=== PATIENT | male | born 1995 | race Caucasian/White ===

== ENCOUNTER 2019-03-09 07:16 | Day surgery (SDC) | payer OTHER ==
[2019-03-09] MEDS: SOD CHLORIDE 0.9% 1,000 ML IV (08:30)
[2019-03-09] MEDS ORDERED: PROPOFOL 20 ML (10:57)
[2019-03-09] MEDS ORDERED: LIDOCAINE 1% (MDV) 20 ML INJ (10:58)
[2019-03-09] MEDS ORDERED: MIDAZOLAM 1 MG/ML 2 ML INJ (10:58)
[2019-03-09] MEDS ORDERED: FENTAnyl 50 MCG/ML VIAL (10:58)
[2019-03-09] MEDS ORDERED: HYDROmorphONE 1 MG/5 ML IV SYRINGE IV ×2 (11:00)
[2019-03-09] MEDS ORDERED: ONDANSETRON 4 MG INJ IV (11:00)
[2019-03-09] MEDS: CEFAZOLIN 2 GM/50 ML (PMX) 50 ML IVPB (11:00)
[2019-03-09] MEDS ORDERED: OXYCODONE/ACETAMINOPHEN (5/325) TAB PO ×2 (11:00)
[2019-03-09] MEDS ORDERED: CEFAZOLIN 1 GM INJ (11:03)
[2019-03-09] MEDS ORDERED: KETOROLAC 30 MG INJ (11:09)
[2019-03-09] MEDS ORDERED: EPHEDrine 25 MG/5 ML SYG (11:09)
[2019-03-09] MEDS ORDERED: ONDANSETRON 4 MG INJ (11:09)
[2019-03-09] MEDS: BUPIVACAINE 0.25% (MPF) 30 ML INJ (11:28)
[2019-03-09] MEDS: HYDROCODONE/APAP (5/325) TAB PO (12:22)
== END 2019-03-09 13:09 | disposition home or self-care (01) ==
LOC: SDS 07:16
DX: D17.23 Benign lipomatous neoplasm of skin and subcutaneous tissue of right leg (principal)
CPT/HCPCS: 14020; 88307